=== PATIENT | female | born 1995 | race Asian ===

== ENCOUNTER 2017-01-02 14:39 | Emergency (ER) | payer BC ==
[~2017-01-02] VITALS: Ht 149.9 cm; Wt 36.3 kg
[2017-01-02 14:45] VITALS: BP 112/73
--- NOTE | 2017-01-02 15:35 | PHYS DOC ---
Past Medical History Past Medical History: No Pertinent History Past Surgical History: No Surgical History Alcohol Use: None Drug Use: None Adult General Chief Complaint Chief Complaint: OTHER COMPLAINTS [facility] Patient is a 21 year old female, who is a [place] immigrant and has been in [facility] for approximately 2 years, complains of a nonproductive cough, feelings of shortness of breath, subjective fevers and chills that been ongoing for 3 months. Patient herself denies any history of cardiopulmonary disease. She states she is nonsmoker. She denies antibiotic use, foreign travel or hospitalization within the past 90 days. Patient denies any known exposure to any persons with tuberculosis. Patient states that her symptoms are primarily at night. She denies loss of weight. She does report periods or night sweats. Review of Systems Review of Systems Constitutional: Denies fever or chills [] Eyes: Denies change in visual acuity, redness, or eye pain [] HENT: Denies nasal congestion or sore throat [] Respiratory: Denies cough or shortness of breath [] Cardiovascular: No additional information not addressed in HPI [] GI: Denies abdominal pain, nausea, vomiting, bloody stools or diarrhea [] : Denies dysuria or hematuria [] Musculoskeletal: Denies back pain or joint pain [] Integument: Denies rash or skin lesions [] Neurologic: Denies headache, focal weakness or sensory changes [] Endocrine: Denies polyuria or polydipsia [] Allergies Allergies Allergies Coded Allergies Type Severity Reaction Last Updated Verified No Known Drug Allergies 01/02/17 No Physical Exam Physical Exam Constitutional: Well developed, well nourished, no acute distress, non-toxic appearance. Patient is afebrile. HENT: Normocephalic, atraumatic, bilateral external ears normal, oropharynx moist, no oral exudates, nose normal. Eyes: PERRLA, EOMI, conjunctiva normal, no discharge. [] Neck: Normal range of motion, no tenderness, supple, no stridor. [] Cardiovascular:Heart rate regular rhythm, no murmur Lungs & Thorax: There is no respiratory distress respiratory fatigue. There is no posturing or sensory muscle use. Lungs are clear to auscultation bilaterally. Abdomen: Bowel sounds normal, soft, no tenderness, no masses, no pulsatile masses. [] Skin: Warm, dry, no erythema, no rash. [] Back: No tenderness, no CVA tenderness. [] Extremities: No tenderness, no cyanosis, no clubbing, ROM intact, no edema. [] Neurologic: Alert and oriented X 3, normal motor function, normal sensory function, no focal deficits noted. [] Psychologic: Affect normal, judgement normal, mood normal. [] Current Patient Data Vital Signs Vital Signs Date Time Temp Pulse Resp B/P Pulse Ox O2 Delivery O2 Flow Rate FiO2 01/02/17 14:45 66 18 112/73 98 Room Air EKG EKG [] Radiology/Procedures Radiology/Procedures [facility] [address] [place] [address] IMAGING REPORT Signed PATIENT: TROY LOPEZ ACCOUNT: [id number] : 1995 LOCATION: ER AGE: 21 SEX: F EXAM STATUS: REG ER ORD. PHYSICIAN: ADRIEL CARRANZA REASON: [place] immigrant with 3 months of cough, nocturnal sweats and chills PROCEDURE: CHEST PA & LATERAL Chest, 2 views, 01/02/2017: History: Night sweats and cough The heart size is normal. The lungs are clear. There is no evidence of pleural fluid. IMPRESSION: No acute cardiopulmonary abnormality is detected. DICTATED and SIGNED BY: STACEY GALLEGO MD DATE: 01/02/17 1540 CC: ADRIEL CARRANZA; NO PCP ~ Course & Med Decision Making Course & Med Decision Making Pertinent Labs and Imaging studies reviewed. (See chart for details) [] Dragon Disclaimer Dragon Disclaimer This electronic medical record was generated, in whole or in part, using a voice recognition dictation system. Departure Departure Impression: Primary Impression: Cough Disposition: 01 HOME, SELF-CARE Condition: GOOD Referrals: NO PCP (PCP) Patient Instructions: Cough, Adult, [id number] Additional Instructions: 1. Your chest x-ray here today is normal. 2. You'll be prescribed out of medication to help with your cough. 3. Take the medication as prescribed. 4. You need to see a primary care doctor. Please use the pamphlet provided for assistance in finding a primary care doctor to address your medical concerns. Please call Thursday to schedule an appointment. Scripts Benzonatate (Tessalon Perle)100 Mg Capsule1 Cap PO TID COUGH #21 CAP Prov:ADRIEL CARRANZA 01/02/17 Cetirizine Hcl (Zyrtec)10 Mg Tablet1 Tab PO DAILY #30 TAB Ref 2 Prov:ADRIEL CARRANZA 01/02/17 ADRIEL CARRANZA Jan 02, 2017 15:35
--- NOTE | 2017-01-02 15:43 | RAD ---
Chest, 2 views, 01/02/2017: History: Night sweats and cough The heart size is normal. The lungs are clear. There is no evidence of pleural fluid. IMPRESSION: No acute cardiopulmonary abnormality is detected.
[2017-01-02] MEDS ORDERED: CETI10TA22 PO (15:48)
[2017-01-02] MEDS ORDERED: BENZ100C PO (15:48)
== END 2017-01-02 15:52 | disposition home or self-care (01) ==
LOC: ER 14:39
DX: R05 Cough (principal); R06.02 Shortness of breath; R50.9 Fever, unspecified
CPT/HCPCS: 71020; 99284-25

== ENCOUNTER 2021-02-19 09:03 | Emergency (ER) | payer SELFPAY ==
[~2021-02-19] VITALS: Ht 149.9 cm; Wt 41.8 kg
[~2021-02-19 09:03] MED LIST: BENZ100C PO; CETI10TA74 PO
[2021-02-19 09:59] LABS: BILIRUBIN,URINE NEGATIVE (NEG); CLARITY,URINE CLEAR; COLOR,URINE YELLOW; NITRITE,URINE NEGATIVE (NEG); PH,URINE 5.5 (<5.0-8.0); PROTEIN,URINE NEGATIVE (NEG-TRACE); UROBILINOGEN,URINE 0.2 mg/dL (0.2 mg/dL)
[2021-02-19 10:11] LABS: BASO # 0.1 x10^3/uL (0.0-0.2); BASO % 1 % (0-3); EOS % 1 % (0-3); HEMATOCRIT 38.2 % (36.0-47.0); HEMOGLOBIN 12.8 g/dL (12.0-15.5); LYMPH # 1.4 x10^3/uL (1.0-4.8); LYMPH % 18 % (24-48); MEAN CORPUSCULAR HEMOGLOBIN 30 pg (25-35); MEAN CORPUSCULAR HGB CONC 33 g/dL (31-37); MEAN CORPUSCULAR VOLUME 89 fL (79-100); MONO # 0.6 x10^3/uL (0.0-1.1); MONO % 8 % (0-9); NEUT # 5.8 x10^3/uL (1.8-7.7); NEUT % 73 % (31-73); PLATELET COUNT 255 x10^3/uL (140-400); RED CELL DISTRIBUTION WIDTH 13.3 % (11.5-14.5); WHITE BLOOD COUNT 7.9 x10^3/uL (4.0-11.0)
[2021-02-19 10:22] LABS: BACTERIA,URINE 0 /HPF (0-FEW); RBC,URINE 0 /HPF (0-2); WBC,URINE 0 /HPF (0-4)
[2021-02-19 10:27] LABS: CREATININE 0.6 mg/dL (0.6-1.0); GFR 120.8; POTASSIUM 3.7 mmol/L (3.5-5.1)
[2021-02-19 10:32] LABS: ALBUMIN 3.9 g/dL (3.4-5.0); ALBUMIN/GLOBULIN RATIO 1.3 (1.0-1.7); TOTAL BILIRUBIN 0.5 mg/dL (0.2-1.0); TOTAL PROTEIN 6.9 g/dL (6.4-8.2)
[2021-02-19] MEDS ORDERED: IOHEXOL 240 MG/ML 50ML VIAL. PO ONE (11:30)
[2021-02-19] MEDS ORDERED: IOHEXOL 350 MG/ML 100 ML VIAL. IV ONE (11:30)
[2021-02-19] MEDS ORDERED: IOHEXOL 300 MG/ML 100ML VIAL. IV ONE (11:30)
--- NOTE | 2021-02-19 12:09 | RAD ---
INDICATION: Reason: right lower quadrant abdominal pain / Spl. Instructions: IV OMNI 300 75 MLS AND P O OMNI 240 50 MLS / History: . COMPARISON: None. TECHNIQUE: Axial CT images obtained through the abdomen with contrast. One or more of the following individualized dose reduction techniques were utilized for this examinat ion: 1. Automated exposure control; 2. Adjustment of the mA and/or kV according to patient size; 3 . Use of iterative reconstruction technique. FINDINGS: Abdominal aorta is not aneurysmal. Liver appears mildly low density. Nonspecific but can be seen with mild fatty infiltration. Portion c ould be from phase of contrast as well. No peripancreatic fluid collection. Spleen unremarkable. 2 mm calcification at the left kidney which could be from a nonobstructive stone. No hydronephrosis. Urinary bladder is partially distended. Rim-enhancing lesion left adnexa measuring up to about 25 mm. There is either some fluid adjacent to it or additional cystic lesion measuring up to 36 mm. Moderate stool within the colon. The suspected appendix is partially seen secondary to multiple loops of bowel within the area and doesn't appear grossly dilated at visualized portion. No evidence of bowel obstruction. Degenerative changes of spine. IMPRESSION: * No evidence of bowel obstruction. * The suspected appendix is partially seen secondary to multiple loops of bowel in the region with t he visualized portion not appearing dilated. * Within the left adnexa there is a rim-enhancing cystic lesion identified with either adjacent flui d or additional cyst. Electronically signed by: Mahad Pacheco MD (02/19/2021 12:06 PM) [id number]
[2021-02-19 12:11] VITALS: BP 98/56
--- NOTE | 2021-02-19 12:27 | PHYS DOC ---
Past Medical History Past Medical History: No Pertinent History Past Surgical History: No Surgical History Smoking Status: Never Smoker Alcohol Use: None Drug Use: None General Adult EDM: Chief Complaint: ABDOMINAL PAIN HPI: HPI: Patient is a 25 year old female who presented to ER due to right lower abdominal pain started last night. Patient denies any nausea vomiting, no fever, no cough. Patient denies any vaginal bleeding or discharge. Patient said nothing make it worse or better. Review of Systems: Review of Systems: Constitutional: Denies fever or chills. [] Eyes: Denies change in visual acuity. [] HENT: Denies nasal congestion or sore throat. [] Respiratory: Denies cough or shortness of breath. [] Cardiovascular: Denies chest pain or edema. [] GI: Positive for right abdominal pain, no nausea vomiting, no diarrhea : Denies dysuria. [] Musculoskeletal: Denies back pain or joint pain. [] Integument: Denies rash. [] Neurologic: Denies headache, focal weakness or sensory changes. [] Endocrine: Denies polyuria or polydipsia. [] Lymphatic: Denies swollen glands. [] Psychiatric: Denies depression or anxiety. [] Heart Score: C/O Chest Pain: N/A Risk Factors: Risk Factors: DM, Current or recent (<one month) smoker, HTN, HLP, family history of CAD, obesity. Risk Scores: Score 0 - 3: 2.5% MACE over next 6 weeks - Discharge Home Score 4 - 6: 20.3% MACE over next 6 weeks - Admit for Clinical Observation Score 7 - 10: 72.7% MACE over next 6 weeks - Early Invasive Strategies Current Medications: Current Medications Medications (Trade) Dose Ordered Sig/Jacqueline Start Time Stop Time Status Last Admin Dose Admin Iohexol (Omnipaque 240 Mg/ml) 50 ml 1X ONCE 02/19/21 11:30 02/19/21 11:31 DC 02/19/21 11:32 50 ML Iohexol (Omnipaque 300 Mg/ml) 75 ml 1X ONCE 02/19/21 11:30 02/19/21 11:31 DC 02/19/21 11:32 75 ML Iohexol (Omnipaque 350 Mg/ml) 90 ml 1X ONCE 02/19/21 11:30 02/19/21 11:31 DC Allergies: Allergies: Allergies Coded Allergies Type Severity Reaction Last Updated Verified No Known Drug Allergies 01/02/17 No Physical Exam: PE: Constitutional: Well developed, well nourished, no acute distress, non-toxic appearance. [] HENT: Normocephalic, atraumatic, bilateral external ears normal, oropharynx moist, no oral exudates, nose normal. [] Eyes: PERRLA, EOMI, conjunctiva normal, no discharge. [] Neck: Normal range of motion, no tenderness, supple, no stridor. [] Cardiovascular:Heart rate regular rhythm, no murmur [] Lungs & Thorax: Bilateral breath sounds clear to auscultation [] Abdomen: Bowel sounds normal, soft, There is tenderness RLQ, NO REBOUND, NO GUARDING, no masses, no pulsatile masses. [] Skin: Warm, dry, no erythema, no rash. [] Back: No tenderness, no CVA tenderness. [] Extremities: No tenderness, no cyanosis, no clubbing, ROM intact, no edema. [] Neurologic: Alert and oriented X 3, normal motor function, normal sensory f unction, no focal deficits noted. [] Psychologic: Affect normal, judgement normal, mood normal. [] Current Patient Data: Labs: Laboratory Tests Test 02/19/21 09:34 02/19/21 09:36 02/19/21 10:00 Urine Collection Type Unknown Urine Color Yellow Urine Clarity Clear Urine pH 5.5 (<5.0-8.0) Urine Specific [place] 1.015 (1.000-1.030) Urine Protein Negative mg/dL (NEG-TRACE) Urine Glucose (UA) Negative mg/dL (NEG) Urine Ketones (Stick) Negative mg/dL (NEG) Urine Blood Negative (NEG) Urine Nitrite Negative (NEG) Urine Bilirubin Negative (NEG) Urine Urobilinogen Dipstick 0.2 mg/dL (0.2 mg/dL) Urine Leukocyte Esterase Negative (NEG) Urine RBC 0 /HPF (0-2) Urine WBC 0 /HPF (0-4) Urine Squamous Epithelial Cells Mod /LPF Urine Bacteria 0 /HPF (0-FEW) POC Urine HCG, Qualitative Hcg negative (Negative) White Blood Count 7.9 x10^3/uL (4.0-11.0) Red Blood Count 4.30 x10^6/uL (3.50-5.40) Hemoglobin 12.8 g/dL (12.0-15.5) Hematocrit 38.2 % (36.0-47.0) Mean Corpuscular Volume 89 fL (79-100) Mean Corpuscular Hemoglobin 30 pg (25-35) Mean Corpuscular Hemoglobin Concent 33 g/dL (31-37) Red Cell Distribution Width 13.3 % (11.5-14.5) Platelet Count 255 x10^3/uL (140-400) Neutrophils (%) (Auto) 73 % (31-73) Lymphocytes (%) (Auto) 18 % (24-48) L Monocytes (%) (Auto) 8 % (0-9) Eosinophils (%) (Auto) 1 % (0-3) Basophils (%) (Auto) 1 % (0-3) Neutrophils # (Auto) 5.8 x10^3/uL (1.8-7.7) Lymphocytes # (Auto) 1.4 x10^3/uL (1.0-4.8) Monocytes # (Auto) 0.6 x10^3/uL (0.0-1.1) Eosinophils # (Auto) 0.0 x10^3/uL (0.0-0.7) Basophils # (Auto) 0.1 x10^3/uL (0.0-0.2) Sodium Level 143 mmol/L (136-145) Potassium Level 3.7 mmol/L (3.5-5.1) Chloride Level 103 mmol/L (98-107) Carbon Dioxide Level 27 mmol/L (21-32) Anion Gap 13 (6-14) Blood Urea Nitrogen 13 mg/dL (7-20) Creatinine 0.6 mg/dL (0.6-1.0) Estimated GFR (Cockcroft-Gault) 120.8 BUN/Creatinine Ratio 22 (6-20) H Glucose Level 85 mg/dL (70-99) Calcium Level 9.0 mg/dL (8.5-10.1) Magnesium Level 2.0 mg/dL (1.8-2.4) Total Bilirubin 0.5 mg/dL (0.2-1.0) Aspartate Amino Transferase (AST) 11 U/L (15-37) L Alanine Aminotransferase (ALT) 17 U/L (14-59) Alkaline Phosphatase 50 U/L (46-116) Total Protein 6.9 g/dL (6.4-8.2) Albumin 3.9 g/dL (3.4-5.0) Albumin/Globulin Ratio 1.3 (1.0-1.7) Laboratory Tests 02/19/21 10:00 Laboratory Tests 02/19/21 10:00 Vital Signs: Vital Signs Date Time Temp Pulse Resp B/P (MAP) Pulse Ox O2 Delivery O2 Flow Rate FiO2 02/19/21 11:28 64 21 111/72 (85) 100 Room Air 02/19/21 09:30 98.3 98.3 EKG: EKG: [] Radiology/Procedures: Radiology/Procedures: [][facility] [address] [place], [place] [id number] IMAGING REPORT Signed PATIENT: TROY LOPEZ ACCOUNT: [id number] : 1995 LOCATION: ER AGE: 25 SEX: F EXAM STATUS: REG ER ORD. PHYSICIAN: DEYANIRA RICHARDS DO REASON: right lower quadrant abdominal pain PROCEDURE: CT ABD PELV W/ORAL&IV CONTRAST INDICATION: Reason: right lower quadrant abdominal pain / Spl. Instructions: IV OMNI 300 75 MLS AND PO OMNI 240 50 MLS / History: . COMPARISON: None. TECHNIQUE: Axial CT images obtained through the abdomen with contrast. One or more of the following individualized dose reduction techniques were utilized for this examination: 1. Automated exposure control; 2. Adjustment of the mA and/or kV according to patient size; 3. Use of iterative reconstruction technique. FINDINGS: Abdominal aorta is not aneurysmal. Liver appears mildly low density. Nonspecific but can be seen with mild fatty infiltration. Portion could be from phase of contrast as well. No peripancreatic fluid collection. Spleen unremarkable. 2 mm calcification at the left kidney which could be from a nonobstructive stone. No hydronephrosis. Urinary bladder is partially distended. Rim-enhancing lesion left adnexa measuring up to about 25 mm. There is either some fluid adjacent to it or additional cystic lesion measuring up to 36 mm. Moderate stool within the colon. The suspected appendix is partially seen secondary to multiple loops of bowel within the area and doesn't appear grossly dilated at visualized portion. No evidence of bowel obstruction. Degenerative changes of spine. IMPRESSION: * No evidence of bowel obstruction. * The suspected appendix is partially seen secondary to multiple loops of bowel in the region with the visualized portion not appearing dilated. * Within the left adnexa there is a rim-enhancing cystic lesion identified with either adjacent fluid or additional cyst. Electronically signed by: Heather Pacheco MD (02/19/2021 12:06 PM) DESKTOP- [id number] DICTATED and SIGNED BY: HEATHER PACHECO MD DATE: 02/19/21 [id number] Course & Med Decision Making: Course & Med Decision Making Pertinent Labs and Imaging studies reviewed. (See chart for details) Patient is a 25-year-old female who presented to ER due to right sided lower abdominal pain, CT scan of her abdomen pelvic did not show any acute problem, lab work was normal. Patient was in no acute distress. CT scan did show that had large amount of stool in her colon, May be contributed to her pain. Dragon Disclaimer: Dragon Disclaimer: This electronic medical record was generated, in whole or in part, using a voice recognition dictation system. Departure Departure Impression: Primary Impression: Abdominal pain Disposition: HOME / SELF CARE / HOMELESS Condition: STABLE Referrals: NO PCP (PCP) Please follow up with [facility] this week. [address], [address] [place] [address] Phone number: [phone] Patient Instructions: Abdominal Pain Additional Instructions: Thank you for visiting our Emergency Department. We appreciate you trusting us with your care. If any additional problems come up don't hesitate to return to visit us. Please follow up with your primary care provider so they can plan additional care if needed and know about the problem that you had. If symptoms worsen come back to the Emergency Department. Any concerning symptoms that start such as chest pain, shortness of air, weakness or numbness on one side of the body, running high fevers or any other concerning symptoms return to the ER. DEYANIRA RICHARDS DO February 19, 2021 12:27
== END 2021-02-19 12:52 | disposition home or self-care (01) ==
LOC: ER 09:03
DX: R10.31 Right lower quadrant pain (principal)
CPT/HCPCS: 36415; 74177; 80053; 81001; 81025; 83735; 85025; 99285; Q9966; Q9967